=== PATIENT | female | born 1995 | race Caucasian/White ===

== ENCOUNTER 2017-07-23 12:31 | Emergency (ER) | payer OTHER ==
[~2017-07-23] VITALS: Ht 160 cm; Wt 90.7 kg
[2017-07-23 13:52] LABS: BASOPHIL % 0.4 % (0-2); PLATELET COUNT 328 x10^3mcL (130-400); RED CELL DISTRIBUTION WIDTH 12.8 % (11.5-14.5)
[2017-07-23 14:12] LABS: CARBON DIOXIDE 24.3 mmol/L (21-32); CHLORIDE SERUM 104 mmol/L (98-107); CREATININE SERUM 0.6 mg/dL (0.6-1.0); GFR1 > 60 mL/min; GLUCOSE SERUM 98 mg/dL (74-106); POTASSIUM SERUM 3.8 mmol/L (3.5-5.1); SODIUM SERUM 138 mmol/L (136-145)
[2017-07-23 14:58] VITALS: BP 122/64
== END 2017-07-23 14:58 | disposition home or self-care (01) ==
LOC: ED 12:31
PROVIDERS: Emergency Medicine
DX: R07.9 Chest pain, unspecified (principal); F45.8 Other somatoform disorders
CPT/HCPCS: 36415

== ENCOUNTER 2018-04-01 10:00 | Emergency (ER) | payer MEDICAID ==
[~2018-04-01] VITALS: Ht 160 cm; Wt 92.1 kg
[2018-04-01 10:02] VITALS: BP 122/86
== END 2018-04-01 11:07 | disposition home or self-care (01) ==
LOC: ED 10:00
DX: T78.1XXA Other adverse food reactions, not elsewhere classified, initial encounter (principal); L50.9 Urticaria, unspecified; X58.XXXA Exposure to other specified factors, initial encounter
CPT/HCPCS: J1100; J1200

== ENCOUNTER 2018-04-04 18:23 | Emergency (ER) | payer OTHER ==
[~2018-04-04] VITALS: Ht 160 cm; Wt 93.6 kg
[2018-04-04 18:52] VITALS: Ht 160 cm; Wt 93.6 kg
[2018-04-04 20:24] VITALS: BP 114/82
== END 2018-04-04 20:24 | disposition home or self-care (01) ==
LOC: ED 18:23
DX: M25.522 Pain in left elbow (principal); M25.521 Pain in right elbow; M25.532 Pain in left wrist; M25.531 Pain in right wrist; M25.562 Pain in left knee; M25.561 Pain in right knee; M25.572 Pain in left ankle and joints of left foot; M25.571 Pain in right ankle and joints of right foot
CPT/HCPCS: J1885; Q0162

== ENCOUNTER 2018-05-14 16:31 | Emergency (ER) | payer OTHER ==
[~2018-05-14] VITALS: Ht 160 cm; Wt 93.9 kg
[2018-05-14 16:35] VITALS: Ht 160 cm; Wt 93.9 kg
[2018-05-14 18:02] LABS: CALCIUM 8.7 mg/dL (8.5-10.1); CARBON DIOXIDE 27.1 mmol/L (21-32); CHLORIDE SERUM 104 mmol/L (98-107); CREATININE SERUM 0.8 mg/dL (0.6-1.0); GFR1 > 60 mL/min; GLUCOSE SERUM 88 mg/dL (74-106); POTASSIUM SERUM 3.5 mmol/L (3.5-5.1); SODIUM SERUM 139 mmol/L (136-145)
[2018-05-14 18:08] LABS: ALKALINE PHOSPHATASE 68 U/L (46-116); ALT/SGPT 38 U/L (14-59); AST/SGOT 20 U/L (15-37); BASOPHIL % 0.1 % (0-2); LIPASE 160 IU/L (73-393); PLATELET COUNT 309 x10^3mcL (130-400); RED CELL DISTRIBUTION WIDTH 13.1 % (11.5-14.5)
[2018-05-14 18:43] LABS: microscopic required? NO
[2018-05-14 19:08] LABS: urine erythrocyte NEGATIVE (NEGATIVE)
[2018-05-14 19:30] VITALS: BP 119/71
== END 2018-05-14 19:30 | disposition home or self-care (01) ==
LOC: ED 16:31
PROVIDERS: Emergency Medicine
DX: N83.209 Unspecified ovarian cyst, unspecified side (principal); E66.9 Obesity, unspecified; Z68.36 Body mass index [BMI] 36.0-36.9, adult
CPT/HCPCS: 36415; Q0092

== ENCOUNTER 2018-11-10 09:34 | Emergency (ER) | payer MEDICAID ==
[~2018-11-10] VITALS: Ht 160 cm; Wt 96.6 kg
[2018-11-10 10:05] VITALS: Ht 160 cm; Wt 96.6 kg
[2018-11-10 12:06] VITALS: BP 128/80
== END 2018-11-10 12:06 | disposition home or self-care (01) ==
LOC: ED 09:34
DX: J02.9 Acute pharyngitis, unspecified (principal)

== ENCOUNTER 2019-02-09 11:53 | Emergency (ER) | payer MEDICAID ==
[~2019-02-09] VITALS: Ht 160 cm; Wt 92.5 kg
[2019-02-09 12:19] VITALS: BP 119/79; Ht 160 cm; Wt 92.5 kg
== END 2019-02-09 14:45 | disposition home or self-care (01) ==
LOC: ED 11:53
DX: S83.8X1A Sprain of other specified parts of right knee, initial encounter (principal); W51.XXXA Accidental striking against or bumped into by another person, initial encounter; Y93.66 Activity, soccer; Y92.322 Soccer field as the place of occurrence of the external cause; Y99.8 Other external cause status
CPT/HCPCS: Q0092

== ENCOUNTER 2019-04-07 16:01 | Emergency (ER) | payer MEDICAID ==
[~2019-04-07] VITALS: Ht 160 cm; Wt 88.0 kg
[2019-04-07 16:03] VITALS: Ht 160 cm; Wt 88.0 kg
[2019-04-07 16:42] VITALS: BP 116/77
== END 2019-04-07 16:42 | disposition home or self-care (01) ==
LOC: ED 16:01
DX: J03.90 Acute tonsillitis, unspecified (principal)

== ENCOUNTER 2019-09-04 15:25 | Emergency (ER) | payer MEDICAID ==
[~2019-09-04] VITALS: Ht 160 cm; Wt 93.9 kg
[2019-09-04 15:50] VITALS: Ht 160 cm; Wt 93.9 kg
[2019-09-04 19:47] VITALS: BP 128/90
== END 2019-09-04 19:47 | disposition home or self-care (01) ==
LOC: ED 15:25
DX: J02.0 Streptococcal pharyngitis (principal)

== ENCOUNTER 2019-09-24 19:09 | Emergency (ER) | payer MEDICAID ==
[~2019-09-24] VITALS: Ht 160 cm; Wt 95.3 kg
[2019-09-24 19:22] VITALS: Ht 160 cm; Wt 95.3 kg
[2019-09-24 20:22] LABS: microscopic required? NO
[2019-09-24 20:29] LABS: UA SPECIFIC GRAVITY 1.015 (1.005-1.035); urine erythrocyte NEGATIVE (NEGATIVE)
[2019-09-24 21:07] LABS: BASOPHIL % 0.5 % (0-2); PLATELET COUNT 327 x10^3mcL (130-400); RED CELL DISTRIBUTION WIDTH 12.6 % (11.5-14.5)
[2019-09-24 21:44] LABS: ALBUMIN 3.4 g/dL (3.4-5.0); CARBON DIOXIDE 29.8 mmol/L (21-32); CHLORIDE SERUM 102 mmol/L (98-107); CREATININE SERUM 0.7 mg/dL (0.6-1.0); GFR1 > 60 mL/min; GLUCOSE SERUM 90 mg/dL (74-106); SODIUM SERUM 135 mmol/L (136-145)
[2019-09-24 21:45] LABS: ALKALINE PHOSPHATASE 61 U/L (46-116); ALT/SGPT 49 U/L (14-59); AST/SGOT 17 U/L (15-37); BILIRUBIN TOTAL 0.1 mg/dL (0.20-1.00); CALCIUM 9.2 mg/dL (8.5-10.1); TOTAL PROTEIN, SERUM 7.3 g/dL (6.4-8.2)
[2019-09-24 22:48] VITALS: BP 118/79
== END 2019-09-24 22:48 | disposition home or self-care (01) ==
LOC: ED 19:09
PROVIDERS: Emergency Medicine
DX: O26.891 Other specified pregnancy related conditions, first trimester (principal); R10.30 Lower abdominal pain, unspecified; Z3A.01 Less than 8 weeks gestation of pregnancy
CPT/HCPCS: 36415

== ENCOUNTER 2019-09-30 12:24 | Emergency (ER) | payer MEDICAID ==
[~2019-09-30] VITALS: Ht 157.5 cm; Wt 97.5 kg
[2019-09-30 12:53] VITALS: Ht 157.5 cm; Wt 97.5 kg
[2019-09-30 16:40] VITALS: BP 110/59
== END 2019-09-30 16:40 | disposition home or self-care (01) ==
LOC: ED 12:24
DX: O26.891 Other specified pregnancy related conditions, first trimester (principal); R10.30 Lower abdominal pain, unspecified; Z3A.01 Less than 8 weeks gestation of pregnancy
CPT/HCPCS: 36415

== ENCOUNTER 2019-11-16 20:19 | Emergency (ER) | payer MEDICAID ==
[~2019-11-16] VITALS: Ht 160 cm; Wt 99.8 kg
[2019-11-16 20:25] VITALS: BP 140/81; Ht 160 cm; Wt 99.8 kg
== END 2019-11-17 00:05 | disposition home or self-care (01) ==
LOC: ED 20:19
DX: L60.0 Ingrowing nail (principal); L08.89 Other specified local infections of the skin and subcutaneous tissue

== ENCOUNTER 2020-02-03 10:42 | Emergency (ER) | payer MEDICAID ==
[~2020-02-03] VITALS: Ht 160 cm; Wt 103.0 kg
[2020-02-03 10:49] VITALS: Ht 160 cm; Wt 103.0 kg
[2020-02-03 11:30] LABS: UA SPECIFIC GRAVITY 1.025 (1.005-1.035); microscopic required? YES; urine erythrocyte 3+ (NEGATIVE)
[2020-02-03 11:44] VITALS: BP 148/102
== END 2020-02-03 11:44 | disposition home or self-care (01) ==
LOC: ED 10:42
DX: N39.0 Urinary tract infection, site not specified (principal)

== ENCOUNTER 2020-03-14 19:17 | Emergency (ER) | payer MEDICAID, SELFPAY ==
[~2020-03-14] VITALS: Ht 167.6 cm; Wt 68.0 kg
[2020-03-14 19:18] VITALS: Ht 167.6 cm; Wt 68.0 kg
[2020-03-14 20:04] VITALS: BP 135/98
== END 2020-03-14 20:04 | disposition home or self-care (01) ==
LOC: ED 19:17
DX: U07.1 COVID-19 (principal); J12.89 Other viral pneumonia
CPT/HCPCS: U0003-CS

== ENCOUNTER 2020-04-22 17:54 | Emergency (ER) | payer MEDICAID ==
[~2020-04-22] VITALS: Ht 160 cm; Wt 103.0 kg
[2020-04-22 18:08] VITALS: Ht 160 cm; Wt 103.0 kg
[2020-04-22 18:45] LABS: BASOPHIL % 0.4 % (0-2); PLATELET COUNT 319 x10^3mcL (130-400); RED CELL DISTRIBUTION WIDTH 12.8 % (11.5-14.5)
[2020-04-22 19:42] LABS: UA SPECIFIC GRAVITY 1.025 (1.005-1.035); microscopic required? YES; urine erythrocyte 3+ (NEGATIVE)
[2020-04-22 20:04] VITALS: BP 124/88
== END 2020-04-22 20:04 | disposition home or self-care (01) ==
LOC: ED 17:54
PROVIDERS: Emergency Medicine
DX: N93.8 Other specified abnormal uterine and vaginal bleeding (principal); E66.9 Obesity, unspecified; Z68.41 Body mass index [BMI] 40.0-44.9, adult

== ENCOUNTER 2020-05-22 00:52 | Emergency (ER) | payer MEDICAID ==
[~2020-05-22] VITALS: Ht 160 cm; Wt 104.3 kg
[2020-05-22 00:57] VITALS: Ht 160 cm; Wt 104.3 kg
[2020-05-22 02:20] LABS: BASOPHIL % 0.3 % (0-2); PLATELET COUNT 314 x10^3mcL (130-400); RED CELL DISTRIBUTION WIDTH 12.4 % (11.5-14.5)
[2020-05-22 03:32] VITALS: BP 118/76
== END 2020-05-22 03:32 | disposition home or self-care (01) ==
LOC: ED 00:52
PROVIDERS: Emergency Medicine
DX: N93.8 Other specified abnormal uterine and vaginal bleeding (principal)
CPT/HCPCS: J1885